=== PATIENT | female | born 1970 | race Caucasian/White ===

== ENCOUNTER 2018-03-02 10:05 | Observation (INO) ==
[2018-03-02] MEDS ORDERED: Ondansetron 4 MG/2 ML VIAL IVP ONE (10:17)
[2018-03-02] MEDS ORDERED: Nitroglycerin 0.4 MG TAB.SUBL SL ONE (10:17)
--- NOTE | 2018-03-02 10:17 | Emergency Department Note ---
Disposition Clinical Impression: Atypical chest pain Disposition: Admitted As Inpatient Condition: Good General Adult HPI - General Stated complaint: chest pain Time Seen by Provider: 03/02/18 10:12 Nursing Notes Reviewed: Yes Vital Signs Reviewed: Yes - Related Data Home Medications Medication Instructions Recorded Confirmed Aspirin/Acetaminophen/Caffeine 1 tab PO Q2W PRN 03/02/18 03/02/18 [Excedrin Migraine Caplet] Benazepril/Hydrochlorothiazide 1 tab PO BID 03/02/18 03/02/18 [Lotensin Hct 10-12.5 mg Tablet] Allergies Allergy/AdvReac Type Severity Reaction Status Date / Time No Known Allergies Allergy Verified 03/02/18 12:06 Course Vital Signs Temperature 98.0 F 03/02/18 10:07 Pulse Rate 83 03/02/18 10:07 Respiratory Rate 12 03/02/18 10:07 Blood Pressure 128/85 03/02/18 10:07 O2 Sat by Pulse Oximetry 100 03/02/18 10:07 Temperature 98.0 F 03/02/18 10:07 Pulse Rate 78 03/02/18 11:43 Respiratory Rate 16 03/02/18 13:02 Blood Pressure 136/89 03/02/18 13:02 O2 Sat by Pulse Oximetry 100 03/02/18 11:43 Oxygen Delivery Oxygen Delivery Room Air Medical Decision Making - [facility] Narrative Medical decision making narrative: Chest X-Ray 03/02/18 10:12 IMPRESSION: No acute cardiopulmonary process is seen. D/ / Herberth Garcia MD / Herberth Garcia MD Interpreting Provider: Herberth Garcia MD 1105 hrs.: Patient's chest x-rays negative. Were not discussed with her admission versus a second troponin in the emergency department. 1117 hrs.: Patient had a repeat episode of pain relieved with one nitroglycerin. Repeating EKG and then we will talk about admission. 1147 hrs.: Talked about doing a CT of her head since she had a headache and sh ould this one felt a little different but she said this is primus image usual and she prefer not to have done sort hold off on that. She would rather be admitted and do a repeat troponin and with her repeat EKG looking good and her chest pain is all Dr. nitroglycerin I think that is a good plan. - Lab Data Result diagrams: 03/02/18 10:30 03/02/18 10:30 Lab Results 03/02/18 03/02/18 03/02/18 Range/Units 10:30 10:30 10:30 WBC 10.5 (4.3-11.1) K/mcL RBC 4.32 (3.82-4.97) M/mcL Hgb 13.3 (11.5-15.4) g/dL Hct 40.1 (35.3-44.9) % MCV 92.8 (83.0-100.0) fL MCH 30.8 (28.0-33.3) pg MCHC 33.2 (31.6-35.5) g/dL RDW 13.4 (11.5-14.5) % Plt Count 269 (140-400) K/mcL MPV 9.6 (9.4-12.4) fL Immature Gran % 0.6 (0-4) % Seg Neutrophils % 76.7 % Lymphocytes % 11.9 % Monocytes % 7.0 % Eosinophils % 3.1 % Basophils % 0.7 % Neutrophils # 8.0 (1.6-8.9) K/mcL Lymphocytes # 1.2 (0.6-4.6) K/mcL Monocytes # 0.7 (0.0-1.3) K/mcL Eosinophils # 0.3 (0.0-0.6) K/mcL Basophils # 0.1 (0.0-0.2) K/mcL Sodium 138 (136-145) mEq/L Potassium 3.4 L (3.5-5.1) mEq/L Chloride 103 (98-107) mEq/L Carbon Dioxide 28 (23-29) mEq/L BUN 9 (6-20) mg/dL Creatinine 0.83 (0.60-1.20) mg/dL Est GFR ( Amer) > 60 (> 60) Est GFR (Non-Af Amer) > 60 (> 60) BUN/Creatinine Ratio 11 (6-26) Glucose 122 H (70-105) mg/dL Calculated Osmolality 286 (280-300) Calcium 9.4 (8.6-10.3) mg/dL Troponin I < 0.03 (< 0.04) ng/mL Lipase (11-82) Units/L Serum , Qual (Negative) 03/02/18 03/02/18 Range/Units 10:30 10:30 WBC (4.3-11.1) K/mcL RBC (3.82-4.97) M/mcL Hgb (11.5-15.4) g/dL Hct (35.3-44.9) % MCV (83.0-100.0) fL MCH (28.0-33.3) pg MCHC (31.6-35.5) g/dL RDW (11.5-14.5) % Plt Count (140-400) K/mcL MPV (9.4-12.4) fL Immature Gran % (0-4) % Seg Neutrophils % % Lymphocytes % % Monocytes % % Eosinophils % % Basophils % % Neutrophils # (1.6-8.9) K/mcL Lymphocytes # (0.6-4.6) K/mcL Monocytes # (0.0-1.3) K/mcL Eosinophils # (0.0-0.6) K/mcL Basophils # (0.0-0.2) K/mcL Sodium (136-145) mEq/L Potassium (3.5-5.1) mEq/L Chloride (98-107) mEq/L Carbon Dioxide (23-29) mEq/L BUN (6-20) mg/dL Creatinine (0.60-1.20) mg/dL Est GFR ( Amer) (> 60) Est GFR (Non-Af Amer) (> 60) BUN/Creatinine Ratio (6-26) Glucose (70-105) mg/dL Calculated Osmolality (280-300) Calcium (8.6-10.3) mg/dL Troponin I (< 0.04) ng/mL Lipase 33 (11-82) Units/L Serum , Qual Negative (Negative) Attestation Statement - Attestation Attestation: This documentation is done with the assistance of Dragon dictation. Despite efforts made to ensure accuracy, there may be inaccuracies in energy infrastructure engineer or spelling and typographical errors. I examined this patient and my medical decision-making was reviewed with the Resident Physician. I agree with the documented findings, disposition and treatment plan as described except to the extent set forth below. Patient was seen today by Dr. Lopez and myself, I agree with his evaluation and management plan, supervise care the patient's stay. Patient was at work this morning she had a migraine yesterday resolved but was not still feeling quite herself today. Had an episode of chest pressure and numbness tingling down her arm. Nauseous. He was called as a [facility] and brought over by medics. Initial EKG from medics look good. They gave her some fluids and baby aspirin but no nitroglycerin since her pressure was low. We will try to make her feel better check some labs and EKG chest x-ray possible head CT and then reassess. She may need to be admitted to the hospital. She is in agreement with this plan of care.
--- NOTE | 2018-03-02 10:19 | Emergency Department Note ---
Disposition Clinical Impression: Atypical chest pain Disposition: Admitted As Inpatient Condition: Good General Adult HPI - General Chief complaint: ED Chest Pain Stated complaint: chest pain Time Seen by Provider: 03/02/18 10:12 Source: patient, EMS Mode of arrival: ambulatory Limitations: no limitations Nursing Notes Reviewed: Yes Vital Signs Reviewed: Yes - History of Present Illness HPI Narrative: Patient is a 47-year-old female with a past medical history of hypertension presents to the emergency department by wheelchair for evaluation of chest pain. Patient states that her chest pain initially started this morning at about 7:00 AM while she was getting ready for work she describes it as a pressure-like retrosternal pain that has been constant since onset. She does not notice exacerbating symptoms or relieving symptoms. Patient states that she was at work this morning at 8:30 in her symptoms begin to worsen worse and became dyspneic and nauseated as well as numbness in her left arm. Denies any history of symptoms similar to this in the past. Patient states that she has had acid reflux lately. She is brought in by his the squad from the other side the hospital in which she was given 500 ML normal saline bolus as well as a full dose of aspirin. Pain Scale: 5 - Related Data Allergies Allergy/AdvReac Type Severity Reaction Status Date / Time No Known Allergies Allergy Verified 03/02/18 12:06 All systems ED: reviewed and negative except as stated. Review of Systems: As Per HPI Constitutional: Denies: fever, chills Cardiovascular: Reports: chest pain. Denies: palpitations, dyspnea on exertion Respiratory: Reports: dyspnea. Denies: cough Gastrointestinal: Reports: nausea. Denies: abdominal pain, vomiting Musculoskeletal: Denies: back pain Integumentary: Denies: rash Neurological: Reports: headache (Patient had a migraine yesterday evening, however this is normal for her and she has these 2 times per month. No headache at this time.) Past Medical History - Past Medical History Attestation: Yes The following information was validated with the patient. Medical history: Reports: hypertension, migraine Psychiatric history: Reports: no psych history - Social History Smoking Status: Never smoker Smokeless Tobacco Status: No Alcohol use: Reports: none Drug use: Reports: none Physical Exam CONSTITUTIONAL: Well-appearing; well-nourished; A&O X 3, in no apparent distress HEAD: Normocephalic; atraumatic EYES: PERRL, no scleral icterus NOSE: The nose is normal in appearance without rhinorrhea NECK: No JVD or distended neck veins RESP: Normal chest excursion with respiration; breath sounds clear and equal bilaterally; no wheezes, rhonchi, or rales CARD: Regular rhythm, without murmurs, rub or gallop ABD: Non-distended; non-tender, soft, without rigidity, rebound or guarding,no pulsatile mass CHEST: No pain with palpation SKIN: Normal for age and race; warm and dry without diaphoresis ; no apparent lesions EXTREMITIES: Pulses are 2 plus and equal times 4 extremities, no peripheral edema or calf muscle pain NEUROLOGICAL: Patient is alert and oriented times three. Cranial nerves III- XII are intact. Sensory and motor functions are intact. Strength is 5/5 for flexion and extension in all 4 extremities. Patellar DTRS are equal and intact. Finger to nose testing is equal and normal bilaterally. - General Limitations: no limitations General appearance: alert, in no apparent distress Course Course Narrative: Patient is to undergo evaluation for her chest pain which will include an EKG, chest x-ray as well as troponin and basic labs. She received full dose aspirin and squad. She is currently asymptomatic we will hold on nitroglycerin at this time. Her initial EKG is nonischemic. Patient's heart is core at this time is low ending patient's disposition and course will determine admission versus discharge home. - Reevaluation(s) Reevaluation #1: Patient began having chest pain she was given one dose of sublingual nitroglycerin which completely resolved her pain. A repeat ECG is unchanged and continues to be nonischemic. Family is concerned given family history of heart disease at a young age patient is leaning towards being admitted for further workup and evaluation. Discussed with the patient that I am agreeable with this plan at this time we will consult the hospitalist for admission. Discussed with patient if she has any further episodes of chest pain to please notify the nurse myself. Time: 11:25 Vital Signs Temperature 98.0 F 03/02/18 10:07 Pulse Rate 83 03/02/18 10:07 Respiratory Rate 12 03/02/18 10:07 Blood Pressure 128/85 03/02/18 10:07 O2 Sat by Pulse Oximetry 100 03/02/18 10:07 Temperature 98.0 F 03/02/18 10:07 Pulse Rate 72 03/02/18 11:13 Respiratory Rate 16 03/02/18 11:13 Blood Pressure 138/89 03/02/18 11:13 O2 Sat by Pulse Oximetry 97 03/02/18 11:13 Oxygen Delivery Oxygen Delivery Room Air Medical Decision Making - Medical Records Medical records reviewed: Yes I reviewed the patient's medical records. - Lab Data Lab results reviewed: Yes I reviewed the patient's lab results. Result diagrams: 03/02/18 10:30 03/02/18 10:30 Lab Results 03/02/18 03/02/18 03/02/18 Range/Units 10:30 10:30 10:30 WBC 10.5 (4.3-11.1) K/mcL RBC 4.32 (3.82-4.97) M/mcL Hgb 13.3 (11.5-15.4) g/dL Hct 40.1 (35.3-44.9) % MCV 92.8 (83.0-100.0) fL MCH 30.8 (28.0-33.3) pg MCHC 33.2 (31.6-35.5) g/dL RDW 13.4 (11.5-14.5) % Plt Count 269 (140-400) K/mcL MPV 9.6 (9.4-12.4) fL Immature Gran % 0.6 (0-4) % Seg Neutrophils % 76.7 % Lymphocytes % 11.9 % Monocytes % 7.0 % Eosinophils % 3.1 % Basophils % 0.7 % Neutrophils # 8.0 (1.6-8.9) K/mcL Lymphocytes # 1.2 (0.6-4.6) K/mcL Monocytes # 0.7 (0.0-1.3) K/mcL Eosinophils # 0.3 (0.0-0.6) K/mcL Basophils # 0.1 (0.0-0.2) K/mcL Sodium 138 (136-145) mEq/L Potassium 3.4 L (3.5-5.1) mEq/L Chloride 103 (98-107) mEq/L Carbon Dioxide 28 (23-29) mEq/L BUN 9 (6-20) mg/dL Creatinine 0.83 (0.60-1.20) mg/dL Est GFR ( Amer) > 60 (> 60) Est GFR (Non-Af Amer) > 60 (> 60) BUN/Creatinine Ratio 11 (6-26) Glucose 122 H (70-105) mg/dL Calculated Osmolality 286 (280-300) Calcium 9.4 (8.6-10.3) mg/dL Troponin I < 0.03 (< 0.04) ng/mL Lipase (11-82) Units/L Serum , Qual (Negative) 03/02/18 03/02/18 Range/Units 10:30 10:30 WBC (4.3-11.1) K/mcL RBC (3.82-4.97) M/mcL Hgb (11.5-15.4) g/dL Hct (35.3-44.9) % MCV (83.0-100.0) fL MCH (28.0-33.3) pg MCHC (31.6-35.5) g/dL RDW (11.5-14.5) % Plt Count (140-400) K/mcL MPV (9.4-12.4) fL Immature Gran % (0-4) % Seg Neutrophils % % Lymphocytes % % Monocytes % % Eosinophils % % Basophils % % Neutrophils # (1.6-8.9) K/mcL Lymphocytes # (0.6-4.6) K/mcL Monocytes # (0.0-1.3) K/mcL Eosinophils # (0.0-0.6) K/mcL Basophils # (0.0-0.2) K/mcL Sodium (136-145) mEq/L Potassium (3.5-5.1) mEq/L Chloride (98-107) mEq/L Carbon Dioxide (23-29) mEq/L BUN (6-20) mg/dL Creatinine (0.60-1.20) mg/dL Est GFR ( Amer) (> 60) Est GFR (Non-Af Amer) (> 60) BUN/Creatinine Ratio (6-26) Glucose (70-105) mg/dL Calculated Osmolality (280-300) Calcium (8.6-10.3) mg/dL Troponin I (< 0.04) ng/mL Lipase 33 (11-82) Units/L Serum , Qual Negative (Negative) - Radiology Data Radiology results reviewed: Yes I reviewed the patient's radiology results. Chest X-Ray 03/02/18 10:12 IMPRESSION: No acute cardiopulmonary process is seen. D/ / Herberth Garcia MD / Herberth Garcia MD Interpreting Provider: Herberth Garcia MD - EKG Data EKG #1 EKG attestation: Yes I reviewed and interpreted this EKG. EKG results narrative: EKG done at 10:14 shows sinus rhythm at a rate of 72 bpm. No STEMI. EKG #2 EKG attestation: Yes I reviewed and interpreted this EKG. EKG results narrative: EKG done at 10:14 shows sinus rhythm at a rate of 72 bpm. No STEMI.
[2018-03-02 10:44] LABS: Basophils # 0.1 K/mcL (0.0-0.2); Basophils % 0.7 %; Eosinophils # 0.3 K/mcL (0.0-0.6); Eosinophils % 3.1 %; Hematocrit 40.1 % (35.3-44.9); Hemoglobin 13.3 g/dL (11.5-15.4); Immature Granulocytes % 0.6 % (0-4); Lymphocytes # 1.2 K/mcL (0.6-4.6); Lymphocytes % 11.9 %; Mean Corpuscular HGB Conc 33.2 g/dL (31.6-35.5); Mean Corpuscular Hemoglobin 30.8 pg (28.0-33.3); Mean Corpuscular Volume 92.8 fL (83.0-100.0); Mean Platelet Volume 9.6 fL (9.4-12.4); Monocytes # 0.7 K/mcL (0.0-1.3); Platelet Count 269 K/mcL (140-400); Red Blood Count 4.32 M/mcL (3.82-4.97); Red Cell Distribution Width 13.4 % (11.5-14.5); Segmented Neutrophils % 76.7 %
[2018-03-02 11:03] LABS: BUN/Creatinine Ratio 11 (6-26); Blood Urea Nitrogen 9 mg/dL (6-20); Calcium 9.4 mg/dL (8.6-10.3); Carbon Dioxide 28 mEq/L (23-29); Chloride 103 mEq/L (98-107); Glucose 122 mg/dL (70-105); Osmolality,Calculated 286 (280-300); Potassium 3.4 mEq/L (3.5-5.1); Sodium 138 mEq/L (136-145); eGFR For Non-African Americans > 60 (> 60)
[2018-03-02 12:23] LABS: Bilirubin,Urine Negative (Negative); Blood,Urine Negative (Negative); Clarity,Urine Cloudy (Clear); Color,Urine Yellow (Yellow); Glucose,Urine (UA) Normal (Normal); Ketones,Urine Negative (Negative); Leukocyte Esterase,Urine Negative (Negative); Nitrite,Urine Negative (Negative); Protein,Urine Negative (Neg-Trace); Urobilinogen,Urine Normal (Normal)
[2018-03-02 12:26] LABS: Bacteria,Urine Few per hpf (None-Few); Hyaline Casts,Urine Few per lpf (None-Few); Squamous Epithelial Cell,Urine Many per lpf (None-Few); WBC,Urine 0-3 per hpf (0-3)
[2018-03-02] MEDS ORDERED: Nitroglycerin 0.4 MG TAB.SUBL SL PRN (12:26)
[2018-03-02] MEDS ORDERED: Acetaminophen/Aspirin/Caffeine TABLET PO PRN (12:26)
[2018-03-02] MEDS ORDERED: Naloxone 0.4 MG/ML INJ IVP PRN (12:51)
--- NOTE | 2018-03-02 12:57 | Internal Med History&Physical ---
Date of Encounter: 03/02/18 Time of Encounter: 12:55 Internal Medicine - H&P: HPI Chief complaint: chest pain, shortness of breath Admitted From: Home Plans for Post Hospital Care: Home History of present illness: Ms. Burgess is a 47 year old female with a PMH of HTN. She presented to the ED today with chest pain. She reports that her chest pain began this morning at 0700 and is retrosternal and sharp with pressure. The pain radiates to her left shoulder and "straight through" to her back. Associated symptoms include dyspnea and nausea. She reports that while at work this morning she began experiencing a burning/sharp pain 10/10 with worsening dyspnea and that she began to "see black". She reports that her coworkers took her BP and spot checked her O2 and reported that she was hypotensive and hypoxic; however her vitals are stable in the ED. She denies any prior cardiac history and has never had a cardiac workup. EKG in the ED did not reveal any ST-T wave changes concerning for ischemia, initial troponin was negative. She was given 324 chewable ASA and chest pain subsided. At the time of my assessment she remains CP free. She does endorse some concern about an irregular heart rate, however, she has no additional complaints. She denies any ill contacts, fevers, chills, URI s/sx, dizziness, arthralgias, myalgias, abdominal pain, N/V/D, or unilateral extremity swelling and/or pain. Given her presentation she is being admitted for observation. She will require serial troponins. I will obtain an echocardiogram and plan for stress test in the a.m. Past Med Surg Social Fam HX - Past Medical History Medical history: hypertension, migraine Psychiatric history: no psych history - Social History Smoking Status: Never smoker Smokeless Tobacco Status: No Alcohol use: none Drug use: none - Family History Father Hx Family Cardiac Disorders: Yes (CAD, CABG, PR) Mother Hx Family Medical Disorders: Yes (BLOOD CLOTS) Internal Medicine - H&P: Meds Aspirin/Acetaminophen/Caffeine [Excedrin Migraine Caplet] 1 tab PO Q2W PRN 03/02/18 [History] Benazepril/Hydrochlorothiazide [Lotensin Hct 10-12.5 mg Tablet] 1 tab PO BID 03/02/18 [History] Allergy/AdvReac Type Severity Reaction Status Date / Time No Known Allergies Allergy Verified 03/02/18 12:06 All Systems PM: A 10-system review of systems was performed and is negative for pertinent findings except as documented above in the HPI. - Constitutional Constitutional: fatigue, no weakness - Cardiovascular Cardiovascular ROS IM: chest pain, diaphoresis, dyspnea, irregular heart rhythm, lightheadedness, palpitations, no dyspnea on exertion, no edema, no orthopnea, no paroxysmal nocturnal dyspnea, no syncope - Respiratory Respiratory: no cough, no dyspnea, no wheezing, no excessive phlegm production - Gastrointestinal Gastrointestinal: no abdominal pain, no diarrhea, no hematemesis, no hematochezia, no melena, no nausea, no vomiting - Genitourinary Genitourinary: no change in urinary stream, no dysuria, no flank pain, no hematuria - Musculoskeletal Musculoskeletal ROS IM: as per HPI, back pain - Integumentary Integumentary IM: no rash, no unusual bruising - Neurological Neurological ROS: no confusion, no convulsions, no focal weakness, no numbness, no tingling, no tremor(s) - Constitutional Vitals: Temp Pulse Resp BP Pulse Ox 98.0 F 78 16 134/87 100 03/02/18 10:07 03/02/18 11:43 03/02/18 11:43 03/02/18 11:43 03/02/18 11:43 General appearance: Present: A&O X 3 Exam: see exam - Head Head exam: Present: atraumatic, normocephalic - Eye Eye exam: Present: EOMI, PERRL, conjuntiva pink, sclera anicteric Pupils: Present: PERRL - Neck Neck exam general surgery: Present: supple, trachea midline. Absent: lymphadenopathy - Respiratory Respiratory exam: Present: chest wall tenderness (Mild left chest), CTAB. Absent: accessory muscle use, rales, rhonchi, wheezes - Cardiovascular Cardiovascular exam: Present: RRR, +S1, +S2, tachycardia. Absent: diastolic murmur, gallop, rubs, systolic murmur - GI/Abdominal GI/Abdominal exam: Present: normal bowel sounds, soft, no peritoneal signs. Absent: distended, tenderness - Extremities Exam Extremities exam: Present: warm, radial pulses palpable and symmetrical. Absent: calf tenderness, cyanotic, pedal edema - Neurological Exam Neurological exam: Present: CN II-XII intact, oriented X3, no focal deficits. Absent: pronater drift, facial droop, speech deficit - Skin Skin exam: Present: dry, intact Internal Med - H&P Results - Labs CBC & Chem 7: 03/02/18 10:30 03/02/18 10:30 Labs: Short CBC 03/02/18 Range/Units 10:30 WBC 10.5 (4.3-11.1) K/mcL Hgb 13.3 (11.5-15.4) g/dL Hct 40.1 (35.3-44.9) % Plt Count 269 (140-400) K/mcL Neutrophils # 8.0 (1.6-8.9) K/mcL BMP 03/02/18 10:30 Sodium 138 Potassium 3.4 L Chloride 103 Carbon Dioxide 28 BUN 9 Creatinine 0.83 Glucose 122 H Calcium 9.4 Cardiac Enzymes 03/02/18 Range/Units 10:30 Troponin I < 0.03 (< 0.04) ng/mL Urine 03/02/18 Range/Units 12:06 Urine Color Yellow (Yellow) Urine Clarity Cloudy A (Clear) Urine pH 6.0 (5.0-8.0) pH Units Ur Specific [place] 1.010 (1.010-1.025) Urine Protein Negative (Neg-Trace) mg/dL Urine Glucose (UA) Normal (Normal) mg/dL - EKG Data -: EKG Interpreted by Myself EKG shows normal: sinus rhythm Rate: normal - EKG Data Prior EKG available for review: no Interpretation IM: normal EKG EKG comments: per my review, normal SR without any ST-T wave changes concerning for ischemia; repeat EKG the same. 03/02/18 13:22 - Impressions ITS Impressions Chest X-Ray 03/02/18 10:12 IMPRESSION: No acute cardiopulmonary process is seen. D/ / Herberth Garcia MD / Herberth Garcia MD Interpreting Provider: Herberth Garcia MD - Assessment and plan (1) Chest pain Current Visit: Yes Status: Acute Assessment and plan: Presented with acute chest pain this morning; also reporting dyspnea and nausea mildly reproducible to palpation of the left chest, however, she is also reporting what appears to be nonmusculoskeletal causes as well Initial and repeat EKG with any concerns for Ischemia; NSR. Initial trop neg Strong family h/o CAD Risk factors of HTN; does not smoke or drink. No h/o DM PLAN: - cardiac enzymes x 2 q 6 hr - ASA daily - Fasting lipids in a.m. - SL Nitro for chest pain PRN - Resume Home meds - Lovenox for DVT prophylaxis - 2D Echo - Stress in a.m - NPO MN - Continuous tele Qualifiers: Qualified Code(s): R07.9 - Chest pain, unspecified - Time Spent With Patient Total time spent is greater than 50% in coordination of care (as documented) at patient's floor/unit and/or counseling patient: less than 15 minutes
--- NOTE | 2018-03-02 16:45 | Electrocardiograph Report ---
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
--- NOTE | 2018-03-02 16:46 | Electrocardiograph Report ---
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
[2018-03-02] MEDS ORDERED: Acetaminophen 325 MG TABLET PO PRN (17:10)
[2018-03-03 05:54] LABS: Chol/HDL Ratio 3.8 (0-4.9)
[2018-03-03] MEDS ORDERED: *HR* Enoxaparin 40 MG/0.4 ML SYRINGE SQ SCH (06:00)
[2018-03-03] MEDS ORDERED: Aspirin 81 MG TAB.CHEW PO SCH (09:00)
--- NOTE | 2018-03-03 11:57 | Discharge Summary ---
- NOTES TO OUTPATIENT PROVIDER Notes to Outpatient Provider: Admitted with atypical chest pain. EKG without any ST-T wave changes concerning for ischemia. Serial troponins negative. Stress test completed found to be negative for acute ischemia. Consider noncardiac cause. May benefit from evaluation of gallbladder outpatient. Will treat for GERD in the meantime Date of Encounter: 03/03/18 Time of Encounter: 11:54 - Discharge Diagnosis (1) Chest pain Priority: Primary Status: Ruled-out Assessment and Plan: Presented with acute chest pain this morning; also reporting dyspnea and nausea mildly reproducible to palpation of the left chest, however, she is also reporting what appears to be nonmusculoskeletal causes as well Initial and repeat EKG with any concerns for Ischemia; NSR. Initial trop neg Strong family h/o CAD Risk factors of HTN; does not smoke or drink. No h/o DM PLAN: - cardiac enzymes x 2 q 6 hr - ASA daily - Fasting lipids in a.m. - SL Nitro for chest pain PRN - Resume Home meds - Lovenox for DVT prophylaxis - 2D Echo - Stress in a.m - NPO MN - Continuous tele 03/03--stress test negative for ischemia. Serial troponins unremarkable EKG without any acute ST-T wave changes concerning for ischemia. Echocardiogram results pending. Please follow-up with PCP for echocardiogram results. Discharging with 81 mg daily aspirin and PPI. Consider noncardiac causes of chest pain Qualifiers: Qualified Code(s): R07.9 - Chest pain, unspecified Hospital course: Ms. Burgess is a 47 year old female who presented with chest pain. ACS rule out implemented. Negative EKG, negative serial troponins. Stress test without ischemic findings. Echocardiogram pending at time of discharge. With normal stress test patient is being discharged home in stable condition. Chest pain has resolved and now returns admission. She is being started on 81 mg daily aspirin as well as PPI to consider noncardiac causes chest pain. Discharge discussed with: patient, nurse - Time Spent with Patient Total time spent providing and/or coordinating discharge services: Less than 30 minutes - Discharge Medications Prescriptions: Aspirin 81 mg PO DAILY 30 Days #30 tab.chew Omeprazole [PriLOSEC] 40 mg PO DAILY 30 Days #30 cap Home Medications: Aspirin/Acetaminophen/Caffeine [Excedrin Migraine Caplet] 1 tab PO Q2W PRN 03/02/18 [History] Benazepril/Hydrochlorothiazide [Lotensin Hct 10-12.5 mg Tablet] 1 tab PO BID 03/02/18 [History] Aspirin 81 mg PO DAILY 30 Days #30 tab.chew 03/03/18 [Rx] Omeprazole [PriLOSEC] 40 mg PO DAILY 30 Days #30 cap 03/03/18 [Rx] Allergies/Adverse Reactions: Allergy/AdvReac Type Severity Reaction Status Date / Time No Known Allergies Allergy Verified 03/02/18 12:06 Date of admission: 03/02/18 12:00 Primary care physician: Anastasiya Gonzales, OPHTHALMOLOGY SURGICAL TECHNICIAN Discharging clinician: Rhys Denis Anticipated date of discharge: 03/03/18 - Constitutional Vitals: Temp Pulse Resp BP Pulse Ox 98.1 F 78 16 131/81 97 03/03/18 07:19 03/03/18 09:39 03/03/18 07:19 03/03/18 09:39 03/03/18 07:19 General appearance: Present: A&O X 3 Exam: see exam - Head Head exam: Present: atraumatic, normocephalic - Eye Eye exam: Present: PERRL, conjuntiva pink, sclera anicteric Pupils: Present: PERRL - Neck Neck exam general surgery: Present: supple, trachea midline. Absent: lymphadenopathy - Respiratory Respiratory exam: Present: CTAB. Absent: accessory muscle use, rales, rhonchi, wheezes - Cardiovascular Cardiovascular exam: Present: RRR, +S1, +S2. Absent: diastolic murmur, gallop, rubs, systolic murmur - GI/Abdominal GI/Abdominal exam: Present: normal bowel sounds, soft, no peritoneal signs. Absent: distended, tenderness - Extremities Exam Extremities exam: Present: warm, radial pulses palpable and symmetrical. Absent: calf tenderness, cyanotic, pedal edema - Neurological Exam Neurological exam: Present: CN II-XII intact, oriented X3, no focal deficits. Absent: pronater drift, facial droop, speech deficit - Skin Skin exam: Present: dry, intact - Patient Status Disposition: Home, Self-Care Condition: Good Functional capacity at discharge: independent ambulation Overall status at discharge: patient is back to baseline - Discharge Instructions Instructions: Aspirin (By mouth), Omeprazole (By mouth), Chest Pain (DC), Gastroesophageal Reflux Disease (DC), Gastroesophageal Reflux Disease (GEN) Follow Up With: Anastasiya Gonzales CNP [Primary Care Provider] - (Hospital follow up appointment has been requested. ) - Diet and Activity Activity: increase activity as tolerated, resume usual activities as tolerated Diet: low fat, low cholesterol, low salt diet
[2018-03-03 12:06] VITALS: BP 130/90
== END 2018-03-03 14:30 | disposition home or self-care (01) ==
LOC: 3BNU 10:05 → EMEROOARM 10:05 → 3BNU 13:18
PROVIDERS: ADMIT Internal Medicine; ATTEND Internal Medicine